=== PATIENT | female | born 1970 | race Two or more races ===

== ENCOUNTER 2018-06-24 14:20 | Outpatient (CLI) | payer OTHER | END 2018-06-24 14:33 | disposition home or self-care (01) | LOC: MAMO-SONO 14:20 | DX: Z12.31 Encounter for screening mammogram for malignant neoplasm of breast (principal); N60.11 Diffuse cystic mastopathy of right breast; N60.12 Diffuse cystic mastopathy of left breast; D25.9 Leiomyoma of uterus, unspecified; D25.1 Intramural leiomyoma of uterus; Q62.10 Congenital occlusion of ureter, unspecified ==

== ENCOUNTER 2018-09-17 11:44 | Outpatient (CLI) | payer OTHER | END 2018-09-17 11:51 | disposition home or self-care (01) | LOC: RAD 11:44 | DX: Z01.818 Encounter for other preprocedural examination (principal) ==

== ENCOUNTER 2018-09-17 12:57 | Outpatient (CLI) | payer OTHER | END 2018-09-17 17:37 | disposition home or self-care (01) | LOC: EKG 12:57 → LAB 12:57 → EKG 17:37 | DX: D50.8 Other iron deficiency anemias (principal); I11.9 Hypertensive heart disease without heart failure ==

== ENCOUNTER 2018-09-26 10:15 | Inpatient (IN) | payer OTHER ==
[~2018-09-26] VITALS: Ht 152.4 cm; Wt 57.2 kg
[2018-09-26] MEDS ORDERED: LISINOPRIL-HCT1 EACH PO (13:25)
[2018-09-26] MEDS ORDERED: GABAPENTIN300 MG PO (13:26)
== END 2018-10-01 10:21 | disposition home or self-care (01) | DRG 743 ==
LOC: O/R 09-29 05:50 → SURG 09-29 10:15 → OB/GYN 09-29 11:32
PROVIDERS: Specialist
PROC: 0UT70ZZ Resection of Bilateral Fallopian Tubes, Open Approach (ICD-10-PCS; 2018-09-29)
PROC: 0USG0ZZ Reposition Vagina, Open Approach (ICD-10-PCS; 2018-09-29)
PROC: 0US20ZZ Reposition Bilateral Ovaries, Open Approach (ICD-10-PCS; 2018-09-29)
PROC: 0UT90ZZ Resection of Uterus, Open Approach (ICD-10-PCS; principal; 2018-09-29 13:45)
DX: D25.1 Intramural leiomyoma of uterus (principal); D25.0 Submucous leiomyoma of uterus; N84.0 Polyp of corpus uteri; N80.0 Endometriosis of uterus; N92.0 Excessive and frequent menstruation with regular cycle; I10 Essential (primary) hypertension; D64.89 Other specified anemias